=== PATIENT | female | born 1960 | race Caucasian/White ===

== ENCOUNTER → 2018-11-11 12:02 | Outpatient (CLI) | payer OTHER, SELFPAY ==
[2018-11-11 13:49] LABS: Add Manual Diff / Slide Review NO; Basophils Absolute Auto 0 /uL (0-100); Basophils Percent Auto 1.2 % (0-2); Eosinophils Absolute Auto 200 /uL (0-450); Eosinophils Percent Auto 6.6 % (2-4); Hematocrit 40.2 % (36-46); Hemoglobin 13.4 g/dL (12.0-16.0); Lymphocytes Absolute Auto 900 /uL (1100-4500); Lymphocytes Percent Auto 24.7 % (25-40); Mean Corpuscular HGB Conc 33.4 % (30-36); Mean Corpuscular Hemoglobin 33.1 PG (26-34); Mean Corpuscular Volume 98.9 fL (80-100); Monocytes Absolute Auto 300 /uL (0-900); Monocytes Percent Auto 8.7 % (3-14); Neutrophils Absolute Auto 2100 /uL (1500-7000); Neutrophils Percent Auto 58.8 % (50-75); Platelet Count 239 X10^3/uL (150-400); Red Blood Cell Count 4.06 X10^6/uL (4.0-5.2); Red Cell Distribution Width 13.4 % (11.6-14.8); White Blood Cell Count 3.5 X10^3/uL (4.5-11.0)
[2018-11-11 14:27] LABS: Thyroid Stimulating Hormone 1.26 uIU/mL (0.47-4.68)
[2018-11-11 15:01] LABS: Folate 8.7 ng/mL (2.76-20.0); Vitamin B12 513 pg/mL (239-931)
[2018-11-11 15:54] LABS: Hep C Virus Ab w/Reflex Quant NEGATIVE s/c (NEGATIVE)
--- NOTE | 2018-11-13 12:02 | PC.NURSE ---
Pt called [facility] wanting to speak with Dr. Shah regarding her labs results. It is not clear when she did this as I spoke with her yesterday afternoon for the very same request. We reviewed her labs over the phone as best we could and she stated she was going to access them via the portal but according to the message she was not able to do so. I called today 11/13 and assured her that her labs were indeed stable and that if she would like a hard copy I would be happy to leave one in will call. I asked her to call to let me know.
== END ==
DX: D72.819 Decreased white blood cell count, unspecified (principal)
CPT/HCPCS: 36415; 82607; 82746; 84443; 85025; 86803

== ENCOUNTER → 2018-11-17 12:03 | Oncology outpatient (ONC) | payer OTHER, SELFPAY ==
[2018-11-11 10:56] VITALS: BP 97/57; PULSE 54; RESP 16; TEMP 36.6; O2SAT 100
--- NOTE | 2018-11-11 11:56 | ONC.CONS ---
History of Present Illness - Data of Consult Consult date: 11/11/18 - Consult Narrative Narrative: Diagnosis: Leukopenia History of present illness: Carmina Harper is a 58 year old female who is referred for further evaluation of an abnormal CBC. Patient reports that she had a CBC done as part of her routine physical. She was feeling quite well and had no specific complaints at that time. She denies any fevers chills or night sweats. She has not had any recent infections. She has not needed any antibiotics. Strength and energy level have been normal. No shortness of breath cough for chest pain. Appetite had been stable. She has not been losing any weight. No GI complaints. She has not had any history of splenomegaly or liver disease. She had been and occasional blood donor. About 7 years ago, she was told that she was too anemic. Since that time, she has not donated. She has never required a transfusion. Overall, she felt quite well. On October 23 her white count was 3.5 with a hemoglobin of 11.9 and hematocrit of 35. Her MCV was 100. Platelets were normal at 189,000 eighty nine thousand. ANC was 1.38 with the lower limit of normal being 1.8. Her creatinine was 0.69. Bilirubin was 0.5. ALT and AST were normal. The patient does have reports from prior CBCs. It shows that her white count has generally been slightly low going back as far as 2000 07 and . She has had a couple of episodes of mild anemia although her hemoglobin and hematocrit have generally been normal. Her past medical history is otherwise unremarkable. She did have a tonsillectomy. Her only medications are escitalopram. She takes acyclovir as needed. She denies any drug allergies. Her family history is negative for blood dyscrasias or cancers. 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 She is . She does not smoke. She does have some alcohol use. She has occasional marijuana use. CC: Alfonzo Shah MD Home Medications and Allergies Home Medications Medication Instructions Recorded Confirmed Type escitalopram oxalate [Lexapro] 10 mg PO QDAY #0 04/01/17 History acyclovir 800 mg PO TID PRN 11/11/18 11/11/18 History desoximetasone 1 applic TOPICAL DAILY PRN 11/11/18 11/11/18 History Allergies Allergy/AdvReac Type Severity Reaction Status Date / Time No Known Allergies Allergy Uncoded 01/29/18 12:44 Medical History - Social History Smoking Status: Former smoker Alcohol Intake: current Alcohol Intake Frequency: 0-2 drinks per day Current Occupational Status: employed Current Occupation Exposures/Hazards: No Review of Systems - Patient Self-Reported Symptoms SR Cardiovascular issues: Dizzy/lightheaded SR Gastrointestinal issues: Change in bowel pattern SR Musculoskeletal issues: Muscle pain or cramps SR Endocrine issues: Cold intolerance Constitutional: able to conduct usual activities, normal exercise tolerance, no weight loss Cardiovascular: no chest pain, no palpitations, no dyspnea on exertion Respiratory: no shortness of breath, no exercise intolerance Gastrointestinal: no change in appetite, no nausea, no vomiting Hematologic/Lymphatic: no enlarged lymph nodes Exam - Constitutional positive no acute distress, positive average body habitus - Routine HEENT Exam Head: Present: normocephalic, atraumatic Eye: Present: EOMI, PERRL. Absent: conjunctival icterus, scleral injection ENT: Present: mucous membranes moist, oropharynx clear, dentition normal - Routine Neck Exam Present: supple. Absent: lymphadenopathy, thyromegaly - Routine Chest/Breast/Axilla Exam Axillae: Absent: lymphadenopathy - Routine Respiratory Exam Present: Clear to auscultation bilaterally. Absent: rales, wheezes - Routine Cardiovascular Exam Present: RRR, S1, S2. Absent: murmur - Routine Abdominal Exam Present: soft, normoactive bowel sounds. Absent: tenderness, organomegaly, mass Palpation/Percussion: Absent: hepatomegaly, splenomegaly - Routine Extremities Exam Absent: cyanosis, clubbing, edema - Routine Back/Spine Exam Back/Spine: Absent: paraspinal tenderness, vertebral tenderness - Routine Skin Exam Present: intact. Absent: petechiae, rash - Routine Neurological Exam Present: alert, oriented X3 - Routine Psychiatric Exam Present: normal affect, normal thought process Assessment and Plan (1) Leukopenia Current visit: Yes Status: Acute 58-year-old woman with a asymptomatic, mild leukopenia. Her white count has been slightly low dating back at least 4-5 years. She has not had any infectious complications. There is no obvious etiology. She is not on any medications likely to lower her white count. She does not have any history of liver disease or hypersplenism. She has not had any symptoms to suggest recent infection. She does have mild increase in her MCV and a slightly low hematocrit although her hemoglobin is normal. I think it would be reasonable to repeat a CBC as well as checking B12 folate and TSH. We also could check antineutrophil antibodies to see if she might have an autoimmune etiology. It be reasonable also check for hepatitis as this can occasionally present with low counts. If those studies are unrevealing, we could potentially consider a bone marrow biopsy. She could have an underlying myelodysplasia. However, her cytopenias are quite mild and she is asymptomatic. Even if myelodysplasia were found may not require immediate therapy. With that in mind, a observation would be an option as well. Will call her when the results of her testing available and arrange for further follow-up after that if needed.
--- NOTE | 2019-02-09 12:51 | ONC.NAV ---
Description: T/C re: appt. cancellation Activity: Called pt and left a message that we are unable to assist with financial request. Explained that appt. for tomorrow was not deemed urgent, and that a later f/u with us would be fine. SERVICE DESK TECHNICIAN did fax Dr. Shah's last note over to her PCP, Nataly Toure, to review and advise. SERVICE DESK TECHNICIAN [place] Encouraged [place] to call should she have any additional questions.
== END ==
PROVIDERS: PCP Nurse Practitioner Family
DX: D72.819 Decreased white blood cell count, unspecified (principal)
CPT/HCPCS: 36415; 82607; 82746; 84443; 85025; 86021; 86803; 99204; 99214

== ENCOUNTER → 2018-12-16 10:04 | Outpatient (CLI) | payer OTHER, SELFPAY ==
--- NOTE | 2018-12-16 | DI.MG.S_ITS ---
BILATERAL DIGITAL SCREENING MAMMOGRAM 3D/2D WITH CAD: 12/16/2018 CLINICAL: Routine screening. Comparison is made to exams dated: 07/23/2013 mammogram, 07/23/2013 ultrasound, and 01/11/2011 mammogram - [facility]. There are scattered fibroglandular elements in both breasts. Current study was also evaluated with a Computer Aided Detection (CAD) system. No significant masses, calcifications, or other findings are seen in either breast. There has been no significant interval change. IMPRESSION: NEGATIVE There is no mammographic evidence of malignancy. A 1 year screening mammogram is recommended. This exam was interpreted at Station ID: [id number]. NOTE: For mammograms, a report in lay terms will be sent to the patient. Approximately 15% of breast malignancies will not be visualized mammographically. In the management of a palpable breast mass, a negative mammogram must not discourage biopsy of a clinically suspicious lesion. Electronically Signed By: Xavier [email or web address]/[email or web address]:12/16/2018 10:57:36 letter sent: Normal Exam ACR BI-RADS Category 1: Negative [id number]
== END ==
PROVIDERS: PCP Nurse Practitioner Family; Visit Provider Nurse Practitioner Family
DX: Z12.31 Encounter for screening mammogram for malignant neoplasm of breast (principal)
CPT/HCPCS: 77063; 77067

== ENCOUNTER → 2023-07-09 13:03 | Outpatient (CLI) | payer MEDICARE, SELFPAY ==
[2023-07-09 21:08] LABS: Add Manual Diff / Slide Review NO; Basophils Absolute Auto 0 /uL (0-100); Basophils Percent Auto 0.9 % (0-2); Eosinophils Absolute Auto 100 /uL (0-450); Eosinophils Percent Auto 2.8 % (2-4); Hematocrit 37.4 % (36-46); Hemoglobin 12.9 g/dL (12.0-16.0); Lymphocytes Absolute Auto 800 /uL (1100-4500); Mean Corpuscular HGB Conc 34.4 % (30-36); Mean Corpuscular Hemoglobin 33.8 PG (26-34); Mean Corpuscular Volume 98.3 fL (80-100); Monocytes Absolute Auto 300 /uL (0-900); Monocytes Percent Auto 6.4 % (3-14); Neutrophils Absolute Auto 3300 /uL (1500-7000); Neutrophils Percent Auto 71.9 % (50-75); Platelet Count 257 X10^3/uL (150-400); Red Cell Distribution Width 12.9 % (11.6-14.8); White Blood Cell Count 4.6 X10^3/uL (4.5-11.0)
[2023-07-09 21:11] LABS: Alanine Aminotransferase 27 IU/L (<35); Albumin Globulin Ratio 1.4 (1.0-2.8); Alkaline Phosphatase 77 U/L (38-126); Aspartate Aminotransferase 39 IU/L (14-36); Bilirubin Total 0.5 mg/dL (0.2-1.3); Blood Urea Nitrogen 17 mg/dL (7-17); Calcium 9.6 mg/dL (8.4-10.2); Carbon Dioxide 29 mmol/L (22-32); Chloride 99 mmol/L (98-107); Estimated Glomerular Filt Rate > 60 mL/min (>60); Globulin 2.9 g/dL (1.7-4.1); Glucose 81 mg/dL (80-110); HEMOLYSIS < 15 (0-50); Potassium 4.1 mmol/L (3.4-5.1); Sodium 135 mmol/L (137-145); Total Protein 6.9 g/dL (6.3-8.2)
[2023-07-09 21:43] LABS: TSH w/ Reflex to FT4 0.89 uIU/mL (0.47-4.68)
[2023-07-09 21:49] LABS: Erythrocyte Sedimentation Rate 8 MM/HR (0-20)
== END ==
PROVIDERS: PCP Physician Assistant; Visit Provider Physician Assistant
DX: D72.819 Decreased white blood cell count, unspecified (principal); R21 Rash and other nonspecific skin eruption
CPT/HCPCS: 80053; 84443; 85025; 85651